=== PATIENT | female | born 1960 | race Caucasian/White ===

== ENCOUNTER → 2016-12-04 | Outpatient (CLI) | payer OTHER ==
[~2016-12-04] MED LIST: LEVOXYL112 MCG PO; MULTIVITAMIN; NEPHROCAPS SOFT1 CAP PO; TIROSINT88 MCG PO; TRAMADOL 50 MG50 MG PO; VITAMINS
== END ==
LOC: CAT 11-27 14:56
DX: M19.071 Primary osteoarthritis, right ankle and foot (principal); M76.829 Posterior tibial tendinitis, unspecified leg